=== PATIENT | female | born 1990 | race Caucasian/White ===

== ENCOUNTER 2021-03-08 17:42 | Emergency (ER) | payer OTHER ==
[~2021-03-08] VITALS: Ht 170.2 cm; Wt 102.7 kg
[2021-03-08 18:57] LABS: COLLECTION METHOD CLEAN CATCH
[2021-03-08 19:05] LABS: BASO # 0.1 (0.0-0.2); BASO % 0.5 % (0.0-2.0); EOS # 0.1 (0.0-0.7); EOS % 1.3 % (0-4.0); HEMATOCRIT 38.8 % (37.0-47.0); HEMOGLOBIN 12.6 g/dl (12.5-16.0); LYMPH # 1.6 (1.2-3.4); LYMPH % 17.4 % (20.0-51.0); MEAN CELL VOLUME 91 fl (80.0-100.0); MEAN CORPUSCULAR HEMOGLOBIN 30 pg (27.0-31.0); MEAN CORPUSCULAR HGB CONC 33 g/dl (33.0-37.0); MEAN PLATELET VOLUME 11.4 fl (7.4-10.4); MONO # 0.5 (0.1-0.6); MONO % 5.6 % (1.7-9.3); PLATELET COUNT 275 K/mm3 (130-400); RED BLOOD COUNT 4.27 M/mm3 (4.10-5.30); REDCELL DISTRIBUTION WIDTH-CV 14.4 % (11.5-14.5)
[2021-03-08 19:08] LABS: PH 7 (5-8); SQUAMOUS EPITHELIAL 0-2 /hpf; URINE APPEARANCE Clear; URINE BACTERIA None Seen /hpf; URINE BILIRUBIN Negative (NEGATIVE); URINE BLOOD Negative (NEGATIVE); URINE COLOR Straw; URINE GLUCOSE Negative (NEGATIVE); URINE KETONE Negative (NEGATIVE); URINE LEUKOCYTE ESTERASE Negative (NEGATIVE); URINE NITRATE Negative (NEGATIVE); URINE PROTEIN(semi-quant) Negative (NEGATIVE); URINE RBC 0-2 /hpf; URINE UROBILINOGEN Negative (NEGATIVE)
[2021-03-09] LABS: ALBUMIN 4.1 gm/dL (3.5-5.0); BILIRUBIN,TOTAL 0.1 mg/dL (0.0-1.0); CREATININE, serum 0.82 (0.52-1.25); POTASSIUM 4.5 mmol/L (3.4-5.0)
[2021-03-09 00:24] VITALS: BP 130/81; PULSE 88; TEMP 98.1
[2021-03-10] MEDS ORDERED: ZOFRAN ODT4 MG PO (23:46)
== END 2021-03-09 00:24 | disposition home or self-care (01) ==
LOC: COL.ER 17:42
PROVIDERS: Nurse Practitioner Primary Care
DX: O26.891 Other specified pregnancy related conditions, first trimester (principal); Z3A.01 Less than 8 weeks gestation of pregnancy

== ENCOUNTER 2021-03-10 22:13 | Emergency (ER) | payer OTHER ==
[~2021-03-10] VITALS: Ht 170.2 cm; Wt 102.7 kg
[2021-03-10 22:22] VITALS: TEMP 98.5
[2021-03-10 23:21] LABS: BASO % 0.5 % (0.0-2.0); EOS # 0.1 (0.0-0.7); EOS % 0.6 % (0-4.0); GRAN # 6.7 (1.4-6.5); GRAN % 79.4 % (42.2-75.2); HEMATOCRIT 38.4 % (37.0-47.0); HEMOGLOBIN 12.8 g/dl (12.5-16.0); LYMPH # 1.2 (1.2-3.4); LYMPH % 14.6 % (20.0-51.0); MEAN CELL VOLUME 90 fl (80.0-100.0); MEAN CORPUSCULAR HEMOGLOBIN 30 pg (27.0-31.0); MEAN CORPUSCULAR HGB CONC 33 g/dl (33.0-37.0); MEAN PLATELET VOLUME 11.1 fl (7.4-10.4); MONO # 0.4 (0.1-0.6); MONO % 4.5 % (1.7-9.3); PLATELET COUNT 257 K/mm3 (130-400); RED BLOOD COUNT 4.28 M/mm3 (4.10-5.30); REDCELL DISTRIBUTION WIDTH-CV 14.2 % (11.5-14.5)
[2021-03-10 23:30] LABS: ALBUMIN 4.2 gm/dL (3.5-5.0); BILIRUBIN,TOTAL 0.9 mg/dL (0.0-1.0); CALCIUM 9.4 mg/dL (8.4-10.2); CREATININE, serum 0.77 (0.52-1.25); POTASSIUM 3.9 mmol/L (3.4-5.0); TOTAL PROTEIN 7.4 gm/dL (6.4-8.2)
[2021-03-10] MEDS ORDERED: ZOFRAN ODT4 MG PO (23:46)
[2021-03-11 00:03] VITALS: BP 137/67; PULSE 92
== END 2021-03-11 00:08 | disposition home or self-care (01) ==
LOC: COL.ER 22:13
PROVIDERS: Emergency Medicine
DX: O08.89 Other complications following an ectopic and molar pregnancy (principal); R10.9 Unspecified abdominal pain; Z3A.00 Weeks of gestation of pregnancy not specified
CPT/HCPCS: J2405; J7120

== ENCOUNTER → 2021-06-02 | Outpatient (CLI) | payer OTHER ==
[~2021-06-02] MED LIST: ZOFRAN ODT4 MG PO
== END ==
LOC: COL.RAD 07:21
DX: O36.80X0 Pregnancy with inconclusive fetal viability, not applicable or unspecified (principal); Z3A.01 Less than 8 weeks gestation of pregnancy

== ENCOUNTER 2021-08-20 20:24 | Emergency (ER) | payer OTHER ==
[~2021-08-20] VITALS: Ht 170.2 cm; Wt 109.1 kg
[2021-08-20 20:27] VITALS: TEMP 98.1
[2021-08-20 21:00] LABS: COLLECTION METHOD CLEAN CATCH
[2021-08-20 21:08] LABS: MUCOUS Present (NOT PRESENT); PH 6 (5-8); URINE APPEARANCE Cloudy (CLEAR/HAZY); URINE BACTERIA Rare /hpf (NONE SEEN); URINE BILIRUBIN Negative (NEGATIVE); URINE BLOOD 2+ (NEGATIVE); URINE COLOR Yellow (YELLOW); URINE GLUCOSE Negative (NEGATIVE); URINE KETONE Negative (NEGATIVE); URINE LEUKOCYTE ESTERASE Negative (NEGATIVE); URINE NITRATE Negative (NEGATIVE); URINE PROTEIN(semi-quant) Negative (NEGATIVE); URINE RBC >50 /hpf (0-2); URINE UROBILINOGEN Negative (NEGATIVE)
[2021-08-20 21:15] LABS: BASO % 0.1 % (0.0-2.0); EOS # 0.1 K/mm3 (0.0-0.7); EOS % 0.8 % (0.0-4.0); GRAN # 8.2 K/mm3 (1.4-6.5); GRAN % 80.6 % (42.2-75.2); HEMOGLOBIN 12.2 g/dl (12.5-16.0); LYMPH # 1.4 K/mm3 (1.2-3.4); LYMPH % 13.6 % (20.0-51.0); MEAN CELL VOLUME 90 fl (80.0-100.0); MEAN CORPUSCULAR HEMOGLOBIN 31 pg (27-31); MEAN CORPUSCULAR HGB CONC 34 g/dl (33.0-37.0); MONO # 0.5 K/mm3 (0.1-0.6); MONO % 4.5 % (1.7-9.3); PLATELET COUNT 224 K/mm3 (130-400); RED BLOOD COUNT 3.99 M/mm3 (4.10-5.30); REDCELL DISTRIBUTION WIDTH-CV 13.6 % (11.5-14.5)
[2021-08-20 21:16] LABS: HEMATOCRIT 35.7 % (37.0-47.0)
[2021-08-20 21:34] LABS: ALBUMIN 3.1 gm/dL (3.5-5.0); BILIRUBIN,TOTAL 0.2 mg/dL (0.2-1.2); CALCIUM 9.3 mg/dL (8.4-10.2); CREATININE, serum 0.79 mg/dL (0.57-1.11); POTASSIUM 3.5 mmol/L (3.5-4.5); TOTAL PROTEIN 6.8 gm/dL (6.2-8.1)
[2021-08-20 22:44] VITALS: BP 130/80; PULSE 102
== END 2021-08-20 22:44 | disposition home or self-care (01) ==
LOC: COL.ER 20:24
PROVIDERS: Nurse Practitioner
DX: O26.892 Other specified pregnancy related conditions, second trimester (principal); M54.50 Low back pain, unspecified; Z3A.17 17 weeks gestation of pregnancy
CPT/HCPCS: J7030

== ENCOUNTER 2021-10-23 13:40 | Outpatient (CLI) | payer OTHER ==
[~2021-10-23] VITALS: Ht 170.2 cm; Wt 112.3 kg
--- NOTE | 2021-10-23 13:52 | NUR ---
1352-G12L1 25.[address] Driscoll ambulatory to LR 5 with complaints of brown bloody discharge when using bathroom an hour ago. No futher findings of blood. Denies leaking of fluid. Denies intercourse in the last 24 hours. Assisted into gown and placed on EFM. Reactive FHR, VSS. Dr. Sharma notified. Orders to check cervix and obtain Clean Catch UA. 1420-SVE by AVNI Deluna C//H. No bloody show on exam. Paitent up to collect urine. 1500-Dr. Sharma notified of lab results and SVE. Orders to dishcarge patient home. 1530-Reviewed discharge instructions. Patient verbalized understanding of instructions and denies questions. Ambulatory off unit.
[2021-10-23] MEDS ORDERED: ASPIRIN 81M81 MG/TA2 PO (13:59)
[2021-10-23] MEDS ORDERED: ZOLOFT 50MG50 MG PO (13:59)
[2021-10-23] MEDS ORDERED: ENDOMETRIN100 MG VG (14:00)
[2021-10-23 14:20] VITALS: BP 118/59; PULSE 113; TEMP 98.1
[2021-10-23 14:40] VITALS: PULSE 94
[2021-10-23 14:55] LABS: COLLECTION METHOD CLEAN CATCH
[2021-10-23 15:03] LABS: MUCOUS Present (NOT PRESENT); PH 6 (5-8); SQUAMOUS EPITHELIAL 0-2 /hpf (0-10); URINE APPEARANCE Hazy (CLEAR/HAZY); URINE BACTERIA None Seen /hpf (NONE SEEN); URINE BILIRUBIN Negative (NEGATIVE); URINE BLOOD Negative (NEGATIVE); URINE COLOR Yellow (YELLOW); URINE GLUCOSE Negative (NEGATIVE); URINE KETONE Negative (NEGATIVE); URINE LEUKOCYTE ESTERASE Negative (NEGATIVE); URINE NITRATE Negative (NEGATIVE); URINE PROTEIN(semi-quant) Negative (NEGATIVE); URINE RBC 0-2 /hpf (0-2); URINE UROBILINOGEN Negative (NEGATIVE)
[2021-10-23 15:07] VITALS: BP 118/80; PULSE 91
== END 2021-10-23 15:30 | disposition home or self-care (01) ==
LOC: LDRO 13:40
PROVIDERS: Obstetrics & Gynecology
DX: Z34.92 Encounter for supervision of normal pregnancy, unspecified, second trimester (principal); Z3A.25 25 weeks gestation of pregnancy

== ENCOUNTER → 2021-12-30 | Outpatient (CLI) | payer OTHER ==
[2021-12-30] VITALS (16 sets, daily range): BP systolic 92–131; BP diastolic 51–75; PULSE 113–130; TEMP 98.4–99.2
[~2021-12-30] VITALS: Ht 170.2 cm; Wt 114.5 kg
[~2021-12-30] MED LIST changes: +ASPIRIN 81M81 MG/TA2 PO; +ENDOMETRIN100 MG VG; +IBU600 MG PO; +NATURAL IRON65 MG; +NOVOLIN N100 U/ML; +NOVOLIN N100 U/ML SQ; +PERCOCET 325 MG1 TA2 PO; +ZOLOFT 50MG50 MG PO
--- NOTE | 2021-12-30 17:00 | NUR ---
1700 - PATIENT AMBULATORY TO LDR4. PATIENT REPORTS FEELING CONTRACTIONS IN HER BACK. PATIENT DENIES BLOODY SHOW AND LEAKING OF FLUID. PATIENT REPORTS GOOD MOVEMENT. PLAN OF CARE REVIEWED. PATIENT CHANGES INTO GOWN. 1705 - PATIENT PLACED ON MONITOR. 170 - SVE PERFORMED BY HEATHER MÉNDEZ. FT/50/-3. QUESTIONS ANSWERED. PLAN OF CARE REVIEWED. CARE ONGOING.
[2021-12-30 18:32] LABS: COLLECTION METHOD CLEAN CATCH
[2021-12-30 18:44] LABS: PH 7 (5-8); URINE APPEARANCE Hazy (CLEAR/HAZY); URINE BACTERIA Rare /hpf (NONE SEEN); URINE BILIRUBIN Negative (NEGATIVE); URINE BLOOD Negative (NEGATIVE); URINE COLOR Yellow (YELLOW); URINE GLUCOSE Negative (NEGATIVE); URINE KETONE Negative (NEGATIVE); URINE LEUKOCYTE ESTERASE Trace (NEGATIVE); URINE NITRATE Negative (NEGATIVE); URINE PROTEIN(semi-quant) Negative (NEGATIVE); URINE RBC 0-2 /hpf (0-2); URINE UROBILINOGEN Negative (NEGATIVE); URINE WBC 0-2 /hpf (0-2)
--- NOTE | 2021-12-30 19:12 | NUR ---
MONITORING REVIEWED WITH DR. FELDER. ORDER RECIEVED FOR 2ND 1000ML LR BOLUS TO BE GIVEN.
--- NOTE | 2021-12-30 19:48 | NUR ---
MONITORING REVIEWED WITH DR. FELDER. ORDERS TO CONTINUE MONITORING, ADMINISTER BETAMETHASONE, AND COLLECT GBS SWAB.
--- NOTE | 2021-12-30 20:15 | NUR ---
Betamethasone injection #1 given 201412/30/21, right buttock per pt. preference.
--- NOTE | 2021-12-30 20:25 | NUR ---
MONITORING REVIEWED BY DR. FELDER. ORDERS TO DISCHARGE RECEIVED.
--- NOTE | 2021-12-30 20:30 | NUR ---
Patient ok to discharge per Dr. Redd. VSS. FHT reactive and reassuring with positive movement. Patient instructed to return 12/31/21 for 2nd dose of betamethasone and NST. Patient also instructed to call or return to unit with any vaginal bleeding, dfm, rom, and painful regular contractions. Patient verbalized understanding and feels comfortable going home. Ambulatory exit of unit.
== END ==
LOC: LDRO 16:50
PROVIDERS: Obstetrics & Gynecology
DX: Z34.93 Encounter for supervision of normal pregnancy, unspecified, third trimester (principal); Z3A.35 35 weeks gestation of pregnancy
CPT/HCPCS: J0702; J7120

== ENCOUNTER 2021-12-31 15:56 | Inpatient (IN) | payer OTHER ==
[2021-12-31] VITALS (31 sets, daily range): BP systolic 92–126; BP diastolic 42–65; PULSE 73–117; TEMP 97.8–98.2
[~2021-12-31] VITALS: Ht 160 cm; Wt 114.5 kg
[~2021-12-31 15:56] MED LIST changes: -IBU600 MG PO; -NOVOLIN N100 U/ML; -NOVOLIN N100 U/ML SQ; -PERCOCET 325 MG1 TA2 PO
--- NOTE | 2021-12-31 16:05 | NUR ---
Presents to L&D for decreased movement. Note patient was here last evening and received betamethasone injection, due to be repeated this evening @ 2000. Patient reports acid reflux, resulting in sore throat throughout her . States she did not sleep at all last night, due to "horrible back and hip pain." Reports irregular contractions. Denies leaking of fluid or vaginal bleeding. Reports red cheeks and arms today, stating, "my skin feels like it's on fire." Afebrile, denies any fever overnight. States she took Tylenol overnight at 0200 and it helped to take the edge off. Note patient very anxious when talking. States she has anxiety, but has been extra anxious since last night being here.
--- NOTE | 2021-12-31 17:08 | NUR ---
in for bedside US.
--- NOTE | 2021-12-31 17:10 | NUR ---
in for assessment. Bedside US performed. Indicates adequate LATASHA, vertex presentation.
[2021-12-31 17:19] LABS: MEAN CELL VOLUME 91 fl (80.0-100.0); MEAN CORPUSCULAR HGB CONC 32 g/dl (33.0-37.0); MEAN PLATELET VOLUME 11.6 fl (7.4-10.4); PLATELET COUNT 169 K/mm3 (130-400); RED BLOOD COUNT 3.41 M/mm3 (4.10-5.30); REDCELL DISTRIBUTION WIDTH-CV 14.9 % (11.5-14.5)
[2021-12-31 17:21] LABS: HEMATOCRIT 30.9 % (37.0-47.0); HEMOGLOBIN 9.9 g/dl (12.5-16.0); MEAN CORPUSCULAR HEMOGLOBIN 29 pg (27-31)
[2021-12-31] MEDS ORDERED: NOVOLIN N100 U/ML (17:28)
[2021-12-31] MEDS ORDERED: NOVOLIN N100 U/ML SQ (17:29)
[2021-12-31 17:37] LABS: ALBUMIN 2.7 gm/dL (3.5-5.0); BILIRUBIN,TOTAL 0.4 mg/dL (0.2-1.2); CALCIUM 9.3 mg/dL (8.4-10.2); CREATININE, serum 0.68 mg/dL (0.57-1.11); POTASSIUM 3.8 mmol/L (3.5-4.5); TOTAL PROTEIN 6.7 gm/dL (6.2-8.1)
[2021-12-31 17:46] LABS: TRICYCLIC ANTIDEPRESS URINE NEGATIVE
[2021-12-31 17:57] LABS: THYROID STIMULATING HORMONE 1.905 uIU/mL (0.350-4.940)
--- NOTE | 2021-12-31 18:09 | NUR ---
in. Discusses with patient all labs have come back normal. Discusses monitor strip looks better at this time. Will plan for repeat dose of betamethasone, and possibly discharge to home.
[2021-12-31 18:26] LABS: BAND 5 % (0-10); LYMPHOCYTE 11 % (20.0-51.0); NEUTROPHILS 80 % (42.0-75.2); PLATELET ESTIMATE NORMAL (NORMAL)
--- NOTE | 2021-12-31 19:00 | NUR ---
1900 FHT BASELINE 140 WITH DECREASE TO 90'S FOR 120 SECONDS WITH RETURN TO BASELINE. GOOD VARIABILITY. BETAMETHASONE 12 MG IM GIVEN ORDERED. ACCU CHECK DONE BY PT AND = 111. DR LIM NOTIFIED OF FHTS AND DECEL AND BLOOD SUGAR. WILL VIEW FM STRIP.
--- NOTE | 2021-12-31 20:00 | NUR ---
1950 DR LIM IN ROOM AND C/SECT DISCUSSED WITH PT. PT'S ON WAY TO THE HOSPITAL. PT AGREES WITH C/SECT. QUANTITATIVE CONSULTANT CALLED AND ON WAY TO THE HOSPITAL.
--- NOTE | 2021-12-31 20:20 | NUR ---
2020 DEISI MARTÍNEZ. PERMITS SIGNED. QUESTIONS ANSWERED. UP TO BR TO VOID. WAITING FOR TO PRECEED WITH C/SECTION.
--- NOTE | 2021-12-31 20:50 | NUR ---
2049 PT IN ROOM. AMB TO OR WITH ASSIST.
--- NOTE | 2021-12-31 23:25 | NUR ---
2326 MOTRIN 600MG AND PECOCET X1 GIVEN FOR INC DISCOMFORT. UNABLE TO MOVE LEGS YET. IV FLUIDS CONTINUE TO INFUSE. DIA PATENT
--- NOTE | 2021-12-31 23:55 | NUR ---
2355 TURNED FROM SIDE TO SIDE AND PERICARE DONE.
[2022-01-01 00:40] VITALS: BP 113/49; PULSE 79
[2022-01-01 04:00] VITALS: BP 115/61; PULSE 84; TEMP 98.4
[2022-01-01 06:51] LABS: HEMATOCRIT 29.6 % (37.0-47.0); HEMOGLOBIN 9.5 g/dl (12.5-16.0)
[2022-01-01 07:45] VITALS: BP 108/51; PULSE 95; TEMP 98.4
--- NOTE | 2022-01-01 08:15 | NUR ---
PT REPORTED BLOOD SUGAR OF 181
--- NOTE | 2022-01-01 09:22 | NUR ---
Initial visit; Parents and young brother were so excited about their new baby boy. Language Teacher offered congratulations and God's blessings for the of their son and thanked them for choosing [facility].
--- NOTE | 2022-01-01 11:30 | NUR ---
PT REPORTS BLOOD SUGAR OF 218
[2022-01-01 13:00] VITALS: BP 109/51; PULSE 81; TEMP 97.2
--- NOTE | 2022-01-01 14:45 | NUR ---
pt reports blood sugar is 83
[2022-01-01 17:20] VITALS: BP 117/63; PULSE 70; TEMP 98
--- NOTE | 2022-01-01 17:45 | NUR ---
pt reports blood sugar is 93
[2022-01-01 19:24] VITALS: BP 104/49; PULSE 90; TEMP 98.4
[2022-01-02 00:34] VITALS: BP 120/72; PULSE 78; TEMP 97.8
[2022-01-02 07:45] VITALS: BP 110/59; PULSE 67; TEMP 97.9
[2022-01-02] MEDS ORDERED: PERCOCET 325 MG1 TA2 PO (08:56)
[2022-01-02] MEDS ORDERED: IBU600 MG PO (08:56)
--- NOTE | 2022-01-02 09:33 | NUR ---
0905 PATIENT'S CALLED AND NOTIFIED NURSING STAFF THAT PATIENT FELT DIZZY. RN TO PATIENT'S ROOM. PATIENT SITTING IN SHOWER. PATIENT STATES THAT HER HELPED HER UP AND THEN SHE MADE IT TO THE BATHROOM BY HERSELF. ONCE SHE GOT INTO THE BATHROOM SHE SAT ON THE BENCH AND SLOWLY STARTED TO TAKE OFF BINDER. SHE STATES "MY HEARING WENT OUT IN MY LEFT EAR AND I GOT REALLY DIZZY AND HOT." PATIENT REPORTS THAT SHE IS STILL REALLY HOT AND DIZZY, PATIENT APPEARS PALE. BP 98/53. PATIENT'S BRINGS HER A COOL WASH CLOTH. RN FANNING PATIENT, PATIENT REPORTS THAT IT IS HELPING. PATIENT REPORTS THAT SHE TRIED TO GET THE WATER COOLER BUT COULDN'T. RN ASSIST PATIENT IN COOLING WATER. AFTER APPROXIMATELY 5MIN OF FANNING PATIENT AND THE COOL WATER PATIENT STATES THAT THIS RN CAN STOP FANNING HER AND THAT THE COOL WATER IS FEELING BETTER. PATIENT REQUEST SOMETHING FOR HEARTBURN AND STATES SHE IS OKAY IF THIS RN LEAVES TO GET IT. PATIENT'S COLOR IS IMPROVING, NO LONGER NEARLY PALE. THIS RN LEFT BATHROOM DOOR OPEN SO THAT HER COULD HEAR HER. RN GIVES TUMS AT 0913. BP TAKEN AGAIN. BP AT [id number]. RN OFFERS AGAIN TO STAY IN BATHROOM IF PATIENT WANTS TO SHOWER. PATIENT ASKS IF HER COULD COME IN. RN OFFERS TO TAKE BABE TO NURSERY. PATIENT AND PATIENT'S AGREEABLE. RN TOLD PATIENT TO CALL OUT IF SHE NEEDS ANYTHING AND THIS RN WILL BE HAPPY TO HELP. 0930 RN CHECKING ON PATIENT. PATIENT'S STEPS OUT OF BATHROOM AND REPORTS THAT THEY ARE DOING FINE. PATIENT STILL SITTING IN SHOWER, APPEARS TO BE DRYING OFF.
--- NOTE | 2022-01-02 12:38 | NUR ---
1230DISCHARGE INSTRUCTIONS REVIEWED WITH PATIENT. PATIENT VERBALIZED UNDERSTANDING. WILL NOTIFY NURSING WHEN READY TO LEAVE.
--- NOTE | 2022-01-02 13:48 | NUR ---
1250ALL PERSONAL BELONGINGS GATHERED FROM PATIENT ROOM. PATIENT LEFT IN A WHEELCHAIR AND IN NO APPARENT DISTRESS. PATIENT ACCOMPANIED BY SPOUSE AND THIS RN.
== END 2022-01-02 12:50 | disposition home or self-care (01) | DRG 788 ==
LOC: LDRO 15:56 → OB 19:43 → LDR 19:43 → OB 22:55
PROVIDERS: ADMIT Obstetrics & Gynecology
PROC: 10D00Z1 Extraction of Products of Conception, Low, Open Approach (ICD-10-PCS; principal; 2021-12-31)
DX: O76 Abnormality in fetal heart rate and rhythm complicating labor and delivery (principal); O99.344 Other mental disorders complicating childbirth; F41.9 Anxiety disorder, unspecified; O99.02 Anemia complicating childbirth; D64.9 Anemia, unspecified; O99.214 Obesity complicating childbirth; O24.424 Gestational diabetes mellitus in childbirth, insulin controlled; Z3A.35 35 weeks gestation of pregnancy; Z37.0 Single live birth
CPT/HCPCS: C9113; J0330; J0690; J0702; J1100; J1815; J2250; J2405; J2590; J2704; J2765; J7120

== ENCOUNTER 2022-01-07 09:01 | Emergency (ER) | payer OTHER ==
[~2022-01-07] VITALS: Ht 170.2 cm; Wt 109.5 kg
[~2022-01-07 09:01] MED LIST changes: +IBU600 MG PO; +NOVOLIN N100 U/ML; +NOVOLIN N100 U/ML SQ; +PERCOCET 325 MG1 TA2 PO
[2022-01-07 09:09] VITALS: TEMP 98.1
[2022-01-07 09:21] LABS: BASO % 0.2 % (0.0-2.0); EOS # 0.1 K/mm3 (0.0-0.7); EOS % 1.2 % (0.0-4.0); GRAN # 5.7 K/mm3 (1.4-6.5); GRAN % 68.2 % (42.2-75.2); HEMOGLOBIN 10.8 g/dl (12.5-16.0); LYMPH # 2.1 K/mm3 (1.2-3.4); LYMPH % 24.5 % (20.0-51.0); MEAN CELL VOLUME 90 fl (80.0-100.0); MEAN CORPUSCULAR HEMOGLOBIN 29 pg (27-31); MEAN CORPUSCULAR HGB CONC 32 g/dl (33.0-37.0); MEAN PLATELET VOLUME 10.9 fl (7.4-10.4); MONO # 0.5 K/mm3 (0.1-0.6); MONO % 5.3 % (1.7-9.3); PLATELET COUNT 212 K/mm3 (130-400); RED BLOOD COUNT 3.75 M/mm3 (4.10-5.30); REDCELL DISTRIBUTION WIDTH-CV 14.5 % (11.5-14.5)
[2022-01-07 09:40] LABS: ALBUMIN 2.9 gm/dL (3.5-5.0); BILIRUBIN,TOTAL 0.3 mg/dL (0.2-1.2); CREATININE, serum 0.8 mg/dL (0.57-1.11); POTASSIUM 4.2 mmol/L (3.5-4.5); TOTAL PROTEIN 6.5 gm/dL (6.2-8.1)
[2022-01-07 09:45] LABS: TROPONIN-I 0.01 ng/mL (0.00-0.033)
[2022-01-07 09:52] LABS: HEMATOCRIT 33.6 % (37.0-47.0)
[2022-01-07 11:40] VITALS: BP 137/83; PULSE 50
== END 2022-01-07 11:40 | disposition home or self-care (01) ==
LOC: COL.ER 09:01
PROVIDERS: Emergency Medicine
DX: O98.53 Other viral diseases complicating the puerperium (principal); U07.1 COVID-19; R79.0 Abnormal level of blood mineral; R79.1 Abnormal coagulation profile; Z28.310 Unvaccinated for COVID-19
CPT/HCPCS: Q9967

== ENCOUNTER → 2022-09-27 | Outpatient (CLI) | payer OTHER | LOC: COL.RAD 06:50 | DX: G83.20 Monoplegia of upper limb affecting unspecified side (principal); M54.2 Cervicalgia | CPT/HCPCS: A9575 ==